=== PATIENT | female | born 1985 | race Caucasian/White ===

== ENCOUNTER 2019-01-04 05:50 | Inpatient (IN) | payer BC ==
[~2019-01-04] VITALS: Ht 167.6 cm; Wt 98.0 kg
--- NOTE | 2019-01-04 10:23 | PR ---
[facility] [address] [facility] [place], [place] [address] Signed Progress Notes IP Datetime Report Generated by CPN: 01/04/2019 10:23 PROGRESS NOTES: [id number] Impression: Normal progression of labor Procedures: Artificial ROM; Sterile Vag Exam Plan: Continue present management Informed Consent Obtain: Vaginal Delivery; Induction of Labor; Risks, Benefits and Alternatives Discussed VITAL SIGNS: [id number] Vital Signs: Reviewed; Within Normal Limits EXAM: [id number] Dilatation: 3.0 Effacement: 50 Station: -2 Uterine Contractions: q 1 to 4 min, mild MEMBRANES: [id number] Membrane Status: Intact ROM Note: AROM with moderate clear fluid Comments: Progressing. Will continue. Fetus A: [id number] FHR Baseline: 130 Variability: Moderate 6-25bpm Accelerations: 15X15 Decelerations: None FHR Category: Category I Presentation: Vertex Comments on Fetus A: No evidence of metabolic acidosis Fetus B: [id number] Signing Physician: Sary Coffman MD Copies: ~ *Electronically Signed* 01/04/19 1023 SARY COFFMAN MD PATIENT NAME: IAIN LANE PROGRESS NOTE DATE OF : 81 PHYSICIAN: SARY COFFMAN MD RPT #: [id number] REPORT IS CONFIDENTIAL AND NOT TO BE RELEASED WITHOUT AUTHORIZATION
--- NOTE | 2019-01-05 10:02 | PR ---
[facility] [address] [facility] [place], [place] [address] Signed PP Progress Notes Datetime Report Generated by LUCIAN: 01/05/2019 10:02 SUBJECTIVE: [id number] Pain: Within normal limits Vital Signs: [id number] Vital Signs: Reviewed; Within Normal Limits EXAM: [id number] Cardiovascular: Not Done Respiratory: Not Done Abdomen/Uterus: Abnormal Lochia: Normal Vulva/Perineum: Not Done Breasts: Not Done CVA Tenderness: Not Done Extremities: Normal Incision: Not Applicable Progress: Normal Exam Comments: Fundus firm, NT @ U-1. H/H 13.2/39.3, WBC 14.8, plat 180k IMPRESSION/PLAN/PROCEDURES: [id number] Impression: Normal progression Plan: Continue present management Progress Notes: Doing well. Will continue present care. Signing Physician: Josh Coffman MD Copies: ~ *Electronically Signed* 01/05/19 1002 JOSH COFFMAN MD PATIENT NAME: IAIN LANE PROGRESS NOTE DATE OF : [birth year] PHYSICIAN: JOSH COFFMAN MD RPT #: [id number] REPORT IS CONFIDENTIAL AND NOT TO BE RELEASED WITHOUT AUTHORIZATION
--- NOTE | 2019-01-06 08:26 | PR ---
[facility] [address] [facility] [place] [address] Signed PP Progress Notes Datetime Report Generated by CPN: 01/06/2019 08:26 SUBJECTIVE: [id number] Pain: Within normal limits Vital Signs: [id number] Vital Signs: Reviewed; Within Normal Limits EXAM: [id number] Cardiovascular: Not Done Respiratory: Not Done Abdomen/Uterus: Abnormal Lochia: Normal Vulva/Perineum: Not Done Breasts: Not Done CVA Tenderness: Not Done Extremities: Normal Incision: Not Applicable Progress: Normal Exam Comments: Fundus firm, NT @ U-1. IMPRESSION/PLAN/PROCEDURES: [id number] Impression: Normal progression Plan: Discharge Procedures: None Progress Notes: Doing well. She is ready for D/C. Signing Physician: Sary Coffman MD Copies: ~ *Electronically Signed* 01/06/19 0826 SARY COFFMAN MD PATIENT NAME: IAIN LANE PROGRESS NOTE DATE OF : [birth year] PHYSICIAN: SARY COFFMAN MD RPT #: [id number] REPORT IS CONFIDENTIAL AND NOT TO BE RELEASED WITHOUT AUTHORIZATION
== END 2019-01-06 12:00 | disposition home or self-care (01) | DRG 807 ==
LOC: FBC 05:50
PROVIDERS: ADMIT Obstetrics & Gynecology
PROC: 10E0XZZ Delivery of Products of Conception, External Approach (ICD-10-PCS; principal; 2019-01-04)
PROC: 0KQM0ZZ Repair Perineum Muscle, Open Approach (ICD-10-PCS; 2019-01-04)
PROC: 10907ZC Drainage of Amniotic Fluid, Therapeutic from Products of Conception, Via Natural or Artificial Opening (ICD-10-PCS; 2019-01-04)
PROC: 3E0P7VZ Introduction of Hormone into Female Reproductive, Via Natural or Artificial Opening (ICD-10-PCS; 2019-01-04)
PROC: 00HU33Z Insertion of Infusion Device into Spinal Canal, Percutaneous Approach (ICD-10-PCS; 2019-01-04)
PROC: 3E0R3BZ Introduction of Anesthetic Agent into Spinal Canal, Percutaneous Approach (ICD-10-PCS; 2019-01-04)
DX: O99.824 Streptococcus B carrier state complicating childbirth (principal); Z37.0 Single live birth; O70.1 Second degree perineal laceration during delivery; O26.03 Excessive weight gain in pregnancy, third trimester; Z3A.39 39 weeks gestation of pregnancy; Z88.2 Allergy status to sulfonamides
CPT/HCPCS: 01960; 36415; 85027; J2540; J2590; J7060

== ENCOUNTER 2020-11-29 07:33 | Day surgery (SDC) | payer BC ==
[~2020-11-29] VITALS: Ht 167.6 cm; Wt 86.4 kg
[~2020-11-29 07:33] MED LIST: KETOCONAZOLE120 ML
[2020-11-29] MEDS ORDERED: TYLENOL EXTRA500 MG PO (10:28)
[2020-11-29] MEDS ORDERED: IBU600 MG PO (10:30)
[2020-11-29] MEDS ORDERED: ENDOCET 7.5-321 EACH PO (10:30)
[2020-11-29] MEDS ORDERED: PERCOCET 7.5-31 EACH PO (11:08)
--- NOTE | 2020-11-30 13:30 | OR ---
[facility] [facility] [address] [place], [place] [address] Signed DATE OF OPERATION: 11/29/2020 SURGEON: Linda Sun MD PREOPERATIVE DIAGNOSIS: Umbilical hernia (symptomatic). POSTOPERATIVE DIAGNOSIS: Incarcerated umbilical hernia (properitoneal fat). PROCEDURE: Repair of incarcerated umbilical hernia with reduction of properitoneal fat and implantation of Prolene mesh, properitoneal space with primary transverse reapproximation of fascia. ANESTHESIA: General LMA; Valerie Jennings CRNA. INDICATION: This 35-year-old white woman is a patient of Dr. Josh Coffman. The patient tells me she does a fair amount of weightlifting. She is also known to have chronic ulcerative colitis. She has no symptoms or signs of active disease of the colitis at this time. She is noted to have an episodically painful umbilical hernia. It was noted at her 1st and worsened with her last nearly a year ago. She is admitted at this time to undergo a repair of the hernia, understands the risks of bleeding, infection, recurrence and so on. The patient advises me preoperatively that she does a fair amount of weightlifting and she understands that there will be restrictions to that on the short term, but ultimately no particular restriction. FINDINGS: The fascial defect was approximately 2 cm. There was incarcerated properitoneal fat, which was certainly not reducible without a fair amount of effort. There was no evidence of hollow viscus incarceration. The herniated fat had no evidence of strangulation or ischemia. Complete reduction of the hernia was accomplished with implantation of Prolene mesh in the properitoneal space with primary reapproximation of the fascia over that. DESCRIPTION OF PROCEDURE: The patient was brought to the operating room, given a general LMA type anesthetic. Preoperative antibiotic Ancef was given. Sequential compression device stockings were Electronically Signed By: LINDA SUN MD 11/30/20 1330 PATIENT NAME: IAIN LANE OPERATIVE REPORT DATE OF : [birth year] REPORT #: [id number] PHYSICIAN: LINDA SUN MD PCP: NO PRIMARY CARE PHYSICIAN REPORT IS CONFIDENTIAL AND NOT TO BE RELEASED WITHOUT AUTHORIZATION [facility] [address] [place], [place] [address] Signed used and heparin subcutaneously administered. The abdomen was prepared with a chlorhexidine solution after clipping. The area was sterilely draped and palpation revealed a non-reducible probably fatty herniated area in the superior aspect of the umbilical fold. A curvilinear incision was made in the umbilical skin fold to the left and dissection carried through the dermis sharply. Immediately noted was herniated properitoneal fat. This was bluntly from surrounding tissue including the overlying dermis. This was round and rubbery and about 2-3 cm in size. Photograph was taken. This was freed circumferentially more fully, ultimately freeing it from the fascial edges itself. With various manipulations, it could be withdrawn and ultimately replaced in the properitoneal space. The properitoneal space was developed with blunt dissection. A segment of Prolene mesh was cut to a circular configuration and secured in an underlay technique in the properitoneal space with interrupted 0 Prolene suture. The fascia was reapproximated transversely with interrupted 0 Prolene in a vertical mattress configuration. 20 mL of 0.25% Marcaine with epinephrine was injected locally. The Rosalind's layer was reapproximated with interrupted 2-0 Vicryl and skin closed with running subcuticular 3-0 Vicryl. Steri-Strips were applied as was a silver sponge dressing. The patient was ultimately extubated and transferred to the recovery room in good condition having suffered no complications. Sponge, needle, and instrument counts were reported as correct x3. Linda Sun MD /MODL /[id number] cc: Josh Coffman MD Copies: JOSH COFFMAN MD ~ Electronically Signed By: LINDA SUN MD 11/30/20 1330 PATIENT NAME: IAIN LANE TAY OPERATIVE REPORT DATE OF : 81 REPORT #: [id number] PHYSICIAN: LINDA SUN MD PCP: NO PRIMARY CARE PHYSICIAN REPORT IS CONFIDENTIAL AND NOT TO BE RELEASED WITHOUT AUTHORIZATION
== END 2020-11-29 12:10 | disposition home or self-care (01) ==
LOC: DS 07:33
PROVIDERS: ATTEND Surgery
DX: K42.0 Umbilical hernia with obstruction, without gangrene (principal); Z88.2 Allergy status to sulfonamides; Z91.018 Allergy to other foods; K51.90 Ulcerative colitis, unspecified, without complications
CPT/HCPCS: 00750; C1781; J0690; J1100; J1644; J1885; J2001; J2250; J2405; J2704; J7121

== ENCOUNTER 2022-02-25 09:57 | Day surgery (SDC) | payer BC ==
[~2022-02-25] VITALS: Ht 167.6 cm; Wt 84.0 kg
[~2022-02-25 09:57] MED LIST changes: +COLLANEX1 GM; +ENDOCET 7.5-321 EACH PO; +IBU600 MG PO; +MULTI VITAMIN1 EACH PO; +PERCOCET 7.5-31 EACH PO; +PROBIOTIC250 MG PO; +TYLENOL EXTRA500 MG PO; +VENTOLIN HFA18 GM; +VITAMIN D3125 MC1 PO
[2022-02-25] MEDS ORDERED: MESALAMINE DR400 MG PO (10:25)
[2022-02-25] MEDS ORDERED: ROWASA4 GM/60 ML PR (10:26)
--- NOTE | 2022-02-25 12:38 | NUR ---
02/25/22 1238 Sophia Field 1234-PATIENT ARRIVED TO PACU AWAKE ON 2L NC RR EVEN. ORIENTED TO PACU DENIES PAIN OR NAUSEA. IVF INFUSING. ABDOMEN SOFT. PATIENT ENCOURAGED TO PASS GAS. 1238-PATIENT SLEEPING 2L NC RR EVEN 99%
[2022-02-25] MEDS ORDERED: PREDNISONE10 MG PO (13:05)
[2022-02-25] MEDS ORDERED: FLAGYL375 MG PO (13:06)
[2022-02-25] MEDS ORDERED: PRILOSEC OTC20 MG PO (13:22)
--- NOTE | 2022-02-26 10:50 | PATH ---
[facility] [address] [facility] [place], [place] [address] Signed SPECIMEN(S): A CECAL BIOPSY SPECIMEN(S): B HEPATIC FLEXURE BIOPSY SPECIMEN(S): C TRANSVERSE COLON BIOPSY SPECIMEN(S): D SPLENIC FLEXURE BIOPSY SPECIMEN(S): E DESCENDING/LEFT COLON BIOPSY SPECIMEN(S): F SIGMOID COLON BIOPSY SPECIMEN(S): G RECTAL BIOPSY SPECIMEN SOURCE: A. CECAL BIOPSY B. HEPATIC FLEXURE BIOPSY C. TRANSVERSE COLON BIOPSY D. SPLENIC FLEXURE BIOPSY E. DESCENDING/LEFT COLON BIOPSY F. SIGMOID COLON BIOPSY G. RECTAL BIOPSY CLINICAL HISTORY: Pre: History of ulcerative colitis; rectal bleeding. Post: Left colon and rectal ulcerative colitis. FINAL PATHOLOGIC DIAGNOSIS: A. Cecum, biopsy: - Colonic mucosa with focal crypt architectural distortion. - Negative for active colitis. - Negative for granulomas, dysplasia or malignancy. B. Colon, hepatic flexure, biopsy: - Colonic mucosa with no histopathologic abnormality. - Negative for active colitis. - Negative for granulomas, dysplasia or malignancy. C. Colon, transverse, biopsy: - Colonic mucosa with crypt architectural distortion. - Negative for active colitis. - Negative for granulomas, dysplasia or malignancy. D. Colon, splenic flexure, biopsy: - Chronic, active colitis. - Negative for granulomas, dysplasia or malignancy. E. Colon, descending/left, biopsy: - Chronic, active colitis. - Negative for granulomas, dysplasia or malignancy. F. Colon, sigmoid, biopsy: PATIENT NAME: IAIN LANE TAY PATHOLOGY DATE OF : 81 REPORT #: [id number] PHYSICIAN: JOSE JOSHI PCP: JAIMIE DALLAS PA-C REPORT IS CONFIDENTIAL AND NOT TO BE RELEASED WITHOUT AUTHORIZATION [facility] [address] [place], [place] [address] Signed - Chronic, active colitis. - Negative for dysplasia or malignancy. G. Rectum, biopsy: - Chronic, active proctitis. - Negative for granulomas, dysplasia or malignancy. COMMENT: The findings are compatible with ulcerative colitis. NAL:cml:C2NR MICROSCOPIC EXAMINATION: Histologic sections of all submitted blocks are examined by light microscopy. These findings, together with the gross examination, support the pathologic diagnosis. GROSS DESCRIPTION: Seven specimens are received in seven containers, labeled "AH." A. The specimen, labeled "AH," and designated on the requisition "cecum," is received in formalin and consists of three veras soft tissue fragments that measure 0.2 to 0.3 cm in greatest dimension. The specimen is entirely submitted in cassette (A1). B. The specimen, labeled "AH," and designated on the requisition "hepatic flexure," is received in formalin and consists of one veras soft tissue fragment that measures 0.4 cm in greatest dimension. The specimen is entirely submitted in cassette (B1). C. The specimen, labeled "AH," and designated on the requisition "transverse colon," is received in formalin and consists of two veras soft tissue fragments that measure 0.3 cm in greatest dimension. The specimen is entirely submitted in cassette (C1). D. The specimen, labeled "AH," and designated on the requisition "splenic flexure," is received in formalin and consists of one veras soft tissue fragment that measures 0.3 cm in greatest dimension. The specimen is entirely submitted in cassette (D1). E. The specimen, labeled "AH," and designated on the requisition "descending colon," is received in formalin and consists of two veras soft tissue fragments that measure 0.3 cm in greatest dimension. The specimen is entirely submitted in cassette (E1). F. The specimen, labeled "AH," and designated on the requisition "sigmoid colon," is received in formalin and consists of two veras soft tissue fragments that measure 0.3 cm in greatest dimension. The specimen is entirely submitted in cassette (F1). PATIENT NAME: IAIN LANE PATHOLOGY DATE OF : [birth year] REPORT #: [id number] PHYSICIAN: JOSE JOSHI PCP: JAIMIE DALLAS PA-C REPORT IS CONFIDENTIAL AND NOT TO BE RELEASED WITHOUT AUTHORIZATION [facility] [address] [place], [place] [address] Signed G. The specimen, labeled "AH," and designated on the requisition "rectum," is received in formalin and consists of three veras soft tissue fragments that measure 0.3 cm in greatest dimension. The specimen is entirely submitted in cassette (G1). AT (under the direct supervision of a pathologist) The Gross Description was prepared using a voice recognition system. The report was reviewed for accuracy; however, sound-alike word errors, addition and/or deletions may occur. If there is any question about this report, please contact Client Services. PERFORMING LABORATORY: The technical component was performed by [facility], [address] [place] [id number] (CLIA# [id number]). Professional interpretation was performed by [facility], [facility], [address] [place] [id number] (CLIA# [id number]). Diagnostician: Beulah Murphy MD Pathologist Electronically Signed 02/26/2022 Copies: ~ PATIENT NAME: IAIN LANE PATHOLOGY DATE OF : [birth year] REPORT #: [id number] PHYSICIAN: JOSE JOSHI PCP: JAIMIE DALLAS PA-C REPORT IS CONFIDENTIAL AND NOT TO BE RELEASED WITHOUT AUTHORIZATION
--- NOTE | 2022-02-26 13:12 | OR ---
[facility] [address] [place], [place] [address] Signed DATE OF OPERATION: 02/25/2022 SURGEON: Linda Sun MD PREOPERATIVE DIAGNOSIS: Possible ulcerative colitis in flare. POSTOPERATIVE DIAGNOSIS: Moderately severe colitis extending from left colon to rectum with proximal sparing. PROCEDURE: Total colonoscopy to cecum with multiple biopsies. ANESTHESIA: Intravenous sedation; fentanyl 100 mcg and Versed 9 mg. INDICATIONS: This 36-year-old white woman is a patient of Jaimie Dallas of [place], [place]. She has been diagnosed at least three years ago with ulcerative colitis by Dr. Weathers in the [facility]. She had been treated with mesalamine (Asacol) and tapered off her medications, preferring a diet only approach to management. I saw her for incarcerated umbilical hernia repair in November of 2020, at which time she had no symptoms related to colitis. A followup visit in December of 2020 showed her to be doing well also. In November of 2021 (November 27, 2021), she describes a "flare" of her colitis. She thought it was related to eating fermented onions and dietary issues. She was treated by Jaimie Dallas PA-C on January 02, 2022, with initiation of prednisone 40 mg a day, which she did not tolerate well and was changed to 30 mg daily with a rapid taper approximately eight days per 10 mg interval. When seen by me on January 08, 2022, she did have some abdominal pain and some bloody diarrhea. She has been taking most recently mesalamine 400 mg p.o. t.i.d. Of note, she did suffer COVID disease in August of 2021, which had resulted in "terrible diarrhea" for five days. She additionally has a family history of colon cancer in her paternal grandfather and her father had ulcerative colitis. She is admitted at this time to undergo colonoscopy to better characterize the state of her colitis in particular in relation to her manifestations of COVID disease. She understands the risks of colonoscopy Electronically Signed By: LINDA SUN MD 02/26/22 1312 PATIENT NAME: IAIN L[address] OPERATIVE REPORT DATE OF : [birth year] REPORT #: [id number] PHYSICIAN: LINDA SUN MD PCP: JAIMIE DALLAS PA-C REPORT IS CONFIDENTIAL AND NOT TO BE RELEASED WITHOUT AUTHORIZATION [facility] [address] [place], [place] [address] Signed including but not limited to bleeding, infection, and perforation. FINDINGS: Indeed, she did have moderately severe colitis, most dominantly in the sigmoid through the left colon with proximal sparing of the transverse colon to the right colon. There was inflammation of the rectum, but not as severe as the sigmoid and left colon. There is no evidence of malignancy or polyps. DESCRIPTION OF PROCEDURE: The patient was brought to the endoscopy suite and placed in lateral decubitus position given intravenous sedation to the point of slurred speech and nystagmus with full cardiopulmonary monitoring. Digital rectal examination was normal. An Olympus video colonoscope was passed in the rectum and manipulated throughout the colon, noting moderately severe colitis extending from the rectum proximally and tapering off at the left transverse colon. More proximal colon was entirely normal. Biopsies were taken of the cecum as well as the hepatic flexure, and ultimately the transverse colon, proximal descending left colon, sigmoid and rectum. Photographs were taken throughout. The patient was taken recovery room in good condition having suffered no complication. CONCLUDING DIAGNOSIS: Definitely a flare of ulcerative colitis. PLAN: We will modify her treatment regimen, this will include increasing mesalamine to 800 mg p.o. t.i.d. and initiate prednisone 40 mg p.o. daily tapering 10 mg intervals every two weeks. Additionally, we will ascertain that she is on PPI medication given the steroid that will be necessary. The patient may have to consider a step care approach to include 6-MP and ultimately biologic agents if this approach is not successful. We will see her back in the office in four weeks or so. Today, we will additionally obtain a C-reactive protein, CBC, and Chem-20. Linda Sun MD /GERTRUDISL /[id number] Electronically Signed By: LINDA SUN MD 02/26/22 1312 PATIENT NAME: IAIN L[address] OPERATIVE REPORT DATE OF : [birth year] REPORT #: [id number] PHYSICIAN: LINDA SUN MD PCP: JAIMIE DALLAS PA-C REPORT IS CONFIDENTIAL AND NOT TO BE RELEASED WITHOUT AUTHORIZATION [address] [address] Signed cc: FLASH Ayoub [place] Copies: ~ Electronically Signed By: LINDA SUN MD 02/26/22 1312 PATIENT NAME: IAIN L[address] OPERATIVE REPORT DATE OF : [birth year] REPORT #: [id number] PHYSICIAN: LINDA SUN MD PCP: JAIMIE DALLAS PA-C REPORT IS CONFIDENTIAL AND NOT TO BE RELEASED WITHOUT AUTHORIZATION
== END 2022-02-25 13:30 | disposition home or self-care (01) ==
LOC: OPS 09:57 → DS 10:03 → OPS 11:15
PROVIDERS: ATTEND Surgery
PROC: 0DBE8ZZ Excision of Large Intestine, Via Natural or Artificial Opening Endoscopic (ICD-10-PCS; principal; 2022-02-25 12:45)
DX: K51.90 Ulcerative colitis, unspecified, without complications (principal); K62.89 Other specified diseases of anus and rectum; Z80.0 Family history of malignant neoplasm of digestive organs; Z86.16 Personal history of COVID-19
CPT/HCPCS: 36415; 84703; 86140; 99153; G0500; J2250; J3010; J7121